=== PATIENT | female | born 1960 | race Caucasian/White ===

== ENCOUNTER → 2022-09-11 13:16 | Outpatient (BNVA) | payer OTHER, SELFPAY | PROVIDERS: PCP Internal Medicine; Visit Provider Hospitalist | DX: Z13.89 Encounter for screening for other disorder (principal) ==

== ENCOUNTER 2022-09-17 13:46 | Outpatient (REF) | payer OTHER, SELFPAY ==
--- NOTE | 2022-09-17 | PFT_ITS ---
Forced vital capacity 97%, FEV1 99%, [id number] 102%, and MVV 76%. Post bronchodilator therapy, there is no significant change. Total lung capacity 101%. Residual volume 101%. Diffusion capacity 84%. CONCLUSION: Normal pulmonary function test. No evidence of obstructive or restrictive pulmonary disease. Slight decrease in MVV is probably effort related. Clinical correlation recommended. MD JESSICA Simms/MODL / [id number]
== END 2022-09-17 13:47 | disposition home or self-care (01) ==
LOC: HO.RESP 13:46
PROVIDERS: PCP Internal Medicine; Visit Provider Hospitalist
DX: J45.909 Unspecified asthma, uncomplicated (principal)
CPT/HCPCS: 94060; 94727; 94729

== ENCOUNTER → 2022-10-06 13:45 | Outpatient (BNVA) | payer OTHER, SELFPAY | PROVIDERS: PCP Internal Medicine; Visit Provider Hospitalist | DX: J44.9 Chronic obstructive pulmonary disease, unspecified (principal); J45.909 Unspecified asthma, uncomplicated; R05.3 Chronic cough ==

== ENCOUNTER → 2023-02-02 13:08 | Outpatient (BNVA) | payer OTHER, SELFPAY | PROVIDERS: PCP Internal Medicine; Visit Provider Hospitalist | DX: J44.9 Chronic obstructive pulmonary disease, unspecified (principal); J45.909 Unspecified asthma, uncomplicated; R05.3 Chronic cough; J30.9 Allergic rhinitis, unspecified ==

== ENCOUNTER 2024-02-03 12:54 | Outpatient (AMB) | payer OTHER, SELFPAY ==
[2024-02-03 12:58] VITALS: PULSE 69; O2SAT 99; BMI 23.4
--- NOTE | 2024-02-03 12:58 | A.OFFVIS_ITS ---
Vital Signs 02/03/24 12:58 Height 5 ft 2 in Weight 127 lb 13.89 oz BMI 23.4 Pulse 69 Pulse Source Pulse Oximeter Pulse Oximetry (%) 99 Oxygen Delivery Method Room Air Intake Visit Reasons: Shortness of breath Vulcanizer Rubber Plate Required: No Allergies No Known Allergies Allergy (Verified 02/03/24 13:02) HPI Comments Details: The patient is a 63 year woman with a known history of exercise induced asthma was not presenting with worsening respiratory symptoms. The patient has been noticing for the last several months she has been having increasing dyspnea on exertion. Also complains of chest tightness and a cough. The cough is not productive in nature. The cough tends to keep her at nighttime. She has tried multiple therapies including [id number] nasal sprays without any significant improvement. She also spoke to her primary care doctor about it. They recommended starting a PPI. The patient opted at not starting any medications for her GI tract at this time. She did undergo a chest x-ray which we personally reviewed. No evidence of any acute disease. She does have a rescue inhaler that she does not find to helpful. She denies any other triggers. Denies any recent illness. The patient denies any new pets a home. On examination she does have some post exhalation coughing suggesting the possibility of cough variant asthma. Will go ahead and optimize respiratory therapy as we gather more information the patient also has significant nasal congestion and postnasal drip likely a component of upper airway cough syndrome. Although she is not taking a PPI we did talk about the importance of sleeping elevated and starting a reflux diet. 10/08/2022 the patient is here for a pulmonary follow-up visit. Overall she is feeling a lot better her shortness breath is improved after starting the Symbicort. She was able to wean off. Although she still has a cough. The cough is typically hacking in nature moderate severity. Intermittent. Usually worse at nighttime. It is likely consistent with a upper airway cough syndrome. Our allergy testings were negative. Therefore, will go ahead and try petroleum nasal spray to see if he can not drive some more her secretions for her nasal passages. Her PFTs also reassuring and also her imaging studies also reassuring. 02/02/2023 the patient is here for a pulmonary follow-up visit. Overall the jovi ent is feeling better. She does not have to use her inhalers regularly. Her major triggers that the hot and humid days in addition to viral illnesses. The patient has nasal congestion has gotten better. She is working closely about reflux disease. She is trying the nasal sprays. She is using the fluticasone. She still has a lot of frothy secretions in the posterior pharynx therefore I did recommend she can not take deep trapping also earlier in the day to try to help her with that. The patient did have a history of eye sinus cyst at some point that resulted in some erosion of her she. Therefore will go ahead and request a sinus x-ray. If the patient continues with congestion in the sinuses and or if her sinus x-rays abnormal will go ahead and refer her to ENT. Otherwise patient seems to be doing okay. Will follow-up in a year's time. She is due for the pneumonia vaccine, Prevnar 20. She is going to get her the pharmacy. Allergy therapies are not working for her. She stop the Zyrtec. The patient did have allergy testing and all was negative her IgE level was noted to be low. 02/03/2024 the patient is here for a pulmonary follow-up visit. She has had a hard few months. Seems like every time she gets a cold her respiratory symptoms worsened she ends up with a cough for several weeks if not couple months. The patient has been using Symbicort as needed. She also has significant nasal congestion. She did finally get an ENT consultation and she did have laryngoscopy. They noticed significant allergy related changes. They recommended allergy testing for potential allergy shots. The patient was not sure. No additional interventions were provided she was told to continue with range therapy. The patient still struggling. We did review her allergy testing that she had about a year ago no significant allergy findings then although the limited study. Indeed the patient has significant inflammation in the posterior pharynx with significant postnasal drip. She is already performing nasal rinsing. Will go ahead and start her on additional therapies at this time. If the patient is no better then will do additional testing. [facility] Medical History (Updated 02/03/24 @ 13:03 by Dimas Vaughn MD) Chronic allergic rhinitis Chronic cough Asthma Social History (Updated 09/11/22 @ 13:30 by GEORGINA Velásquez) Patient Tobacco Use Status: Former Tobacco user Tobacco use type: Cigarette Years Smoked: 5 Years Review of Systems Const Denies weakness Eyes Denies change in vision and Denies itchy eyes ENT Reports change in voice, Reports nasal congestion, Reports nasal discharge and Reports post nasal drip Card Denies chest pain and Denies dyspnea on exertion Resp Reports chest congestion, Reports cough, Denies dyspnea on exertion and Reports wheezing GI Reports no additional complaints Musc Reports arthralgias and Reports joint swelling Skin/Breast Denies rash Neuro Reports no additional complaints and Denies weakness Pawan/Lymph Denies easy bruising Aller/Immun Denies itchy eyes and Reports wheezing Physical Exam Vital Signs: Last Vital Signs Pulse 69 02/03/24 12:58 Pulse Ox 99 02/03/24 12:58 Oxygen Delivery Method Room Air 02/03/24 12:58 BMI result Body Mass Index 23.4 Const General: comfortable HEENT General nose exam: Abnormal mucous membranes and turbinates present boggy and erythematous and Nasal discharge present Throat: Yes postnasal drainage and Yes cobblestoning Eyes General: appearance normal, both eyes and all related structures Neck Neck: Yes supple Chest Chest palpation & inspection: normal inspection of the chest Resp Effort & Inspection: normal respiratory effort Auscultation: clear to auscultation bilaterally and wheezes Cardio Rate: regular rate Rhythm: regular rhythm Heart sounds: S1 normal heart sound present and S2 normal heart sound present GI Auscultation: normal bowel sounds Skin General skin exam: no rashes or lesions noted Extrem General: Yes no clubbing, cyanosis or edema Assessment & Plan Assessment & Plan (1) Chronic allergic rhinitis: Code(s): J30.9 - Allergic rhinitis, unspecified Category: Medical (2) Chronic cough: Code(s): R05.3 - Chronic cough Category: Medical (3) Asthma: Code(s): J45.909 - Unspecified asthma, uncomplicated Category: Medical Qualifiers: Asthma complication type: uncomplicated Asthma persistence: persistent Asthma severity: moderate Qualified Code(s): J45.40 - Moderate persistent asthma, uncomplicated Plan Increase Symbicort BID start Singulair KATLIN as needed continue Zyrtec start Astelin nasal spray flonase OTC nasal rinsing reflux diet sleep elavated benzonates as needed for cough F/U 3 months Medications: New montelukast 10 mg PO DAILY 30 tabs 11RF 30 days J45.909 - Unspecified asthma, uncomplicated Refilled benzonatate 200 mg PO BID 30 days PRN 60 caps 0RF cough benzonatate 200 mg PO BID PRN 60 caps 5RF cough 30 days budesonide-formoterol 160-4.5 mcg/actuation (Symbicort) 2 puffs inhalation BID 10.2 grams 11RF 30 days J44.9 - Chronic obstructive pulmonary disease, unspecified Coding Level of Care Code Est Pt Level 4 (28864) Diagnoses Chronic allergic rhinitis J30.9 Chronic cough R05.3 Moderate persistent asthma without complication J45.40 Asthma complication type: uncomplicated Asthma persistence: persistent Asthma severity: moderate Time Spent (min) 17
== END 2024-02-03 13:25 | disposition home or self-care (01) ==
PROVIDERS: PCP Internal Medicine; Visit Provider Hospitalist
DX: J30.9 Allergic rhinitis, unspecified (principal); R05.3 Chronic cough; J45.40 Moderate persistent asthma, uncomplicated
CPT/HCPCS: 99214

== ENCOUNTER → 2024-02-03 12:54 | Outpatient (BNVA) | payer OTHER, SELFPAY | PROVIDERS: PCP Internal Medicine; Visit Provider Hospitalist ==

== ENCOUNTER 2024-06-13 13:37 | Outpatient (AMB) | payer OTHER, SELFPAY ==
--- NOTE | 2024-06-13 13:38 | MHC.OFFVIS ---
Vital Signs 06/13/24 13:41 Weight 126 lb 12.253 oz BP 126/62 Blood Pressure Location Lt brachial Position Sitting Pulse 72 Pulse Source Pulse Oximeter Pulse Oximetry (%) 99 Oxygen Delivery Method Room Air Intake Visit Reasons: Shortness of breath Allergies No Known Allergies Allergy (Verified 06/13/24 13:43) Medication List - Last Reconciled 06/13/24 by Chey Butler LPN albuterol sulfate 90 mcg/actuation 2 puffs inhalation Q6H PRN atorvastatin 20 mg PO DAILY azelastine (Astepro Allergy) 2 sprays intranasal BID benzonatate 200 mg PO BID PRN 30 days budesonide-formoterol 160-4.5 mcg/actuation (Symbicort) 2 puffs inhalation BID 30 days cetirizine (Zyrtec) 10 mg PO DAILY PRN inhalational spacing device (Aerochamber MV spacer) As directed ipratropium bromide 2 sprays intranasal TID PRN montelukast 10 mg PO DAILY 30 days HPI Comments Details: The patient is a 63 year woman with a known history of exercise induced asthma was not presenting with worsening respiratory symptoms. The patient has been noticing for the last several months she has been having increasing dyspnea on exertion. Also complains of chest tightness and a cough. The cough is not productive in nature. The cough tends to keep her at nighttime. She has tried multiple therapies including [id number] nasal sprays without any significant improvement. She also spoke to her primary care doctor about it. They recommended starting a PPI. The patient opted at not starting any medications for her GI tract at this time. She did undergo a chest x-ray which we personally reviewed. No evidence of any acute disease. She does have a rescue inhaler that she does not find to helpful. She denies any other triggers. Denies any recent illness. The patient denies any new pets a home. On examination she does have some post exhalation coughing suggesting the possibility of cough variant asthma. Will go ahead and optimize respiratory therapy as we gather more information the patient also has significant nasal congestion and postnasal drip likely a component of upper airway cough syndrome. Although she is not taking a PPI we did talk about the importance of sleeping elevated and starting a reflux diet. 10/08/2022 the patient is here for a pulmonary follow-up visit. Overall she is feeling a lot better her shortness breath is improved after starting the Symbicort. She was able to wean off. Although she still has a cough. The cough is typically hacking in nature moderate severity. Intermittent. Usually worse at nighttime. It is likely consistent with a upper airway cough syndrome. Our allergy testings were negative. Therefore, will go ahead and try petroleum nasal spray to see if he can not drive some more her secretions for her nasal passages. Her PFTs also reassuring and also her imaging studies also reassuring. 02/02/2023 the patient is here for a pulmonary follow-up visit. Overall the patient is feeling better. She does not have to use her inhalers regularly. Her major triggers that the hot and humid days in addition to viral illnesses. The patient has nasal congestion has gotten better. She is working closely about reflux disease. She is trying the nasal sprays. She is using the fluticasone. She still has a lot of frothy secretions in the posterior pharynx therefore I did recommend she can not take deep trapping also earlier in the day to try to help her with that. The patient did have a history of eye sinus cyst at some point that resulted in some erosion of her she. Therefore will go ahead and request a sinus x-ray. If the patient continues with congestion in the sinuses and or if her sinus x-rays abnormal will go ahead and refer her to ENT. Otherwise patient seems to be doing okay. Will follow-up in a year's time. She is due for the pneumonia vaccine, Prevnar 20. She is going to get her the pharmacy. Allergy therapies are not working for her. She stop the Zyrtec. The patient did have allergy testing and all was negative her IgE level was noted to be low. 02/03/2024 the patient is here for a pulmonary follow-up visit. She has had a hard few months. Seems like every time she gets a cold her respiratory symptoms worsened she ends up with a cough for several weeks if not couple months. The patient has been using Symbicort as needed. She also has significant nasal congestion. She did finally get an ENT consultation and she did have laryngoscopy. They noticed significant allergy related changes. They recommended allergy testing for potential allergy shots. The patient was not sure. No additional interventions were provided she was told to continue with range therapy. The patient still struggling. We did review her allergy testing that she had about a year ago no significant allergy findings then although the limited study. Indeed the patient has significant inflammation in the posterior pharynx with significant postnasal drip. She is already performing nasal rinsing. Will go ahead and start her on additional therapies at this time. If the patient is no better then will do additional testing. 06/13/2024 the patient is here for a pulmonary follow-up visit. The patient overall has been doing a lot better. She feels like she is on a good regimen. She has already nasal therapy for her allergies and postnasal drip. She is also using her inhalers with good effect for her asthma. No recent x-rays to review. The patient will continue the current therapy as prescribed. He is going to be going to [place] soon. Her vaccines are up-to-date. Will follow-up in a year's time. [facility] Medical History (Updated 02/03/24 @ 13:03 by Dimas Vaughn MD) Chronic allergic rhinitis Chronic cough Asthma Social History (Updated 06/13/24 @ 13:44 by Chey Butler LPN) Patient Tobacco Use Status: Former Tobacco user Tobacco use type: Cigarette Years Smoked: 5 Years Review of Systems Const Denies weakness Eyes Denies change in vision and Denies itchy eyes ENT Denies change in voice, Reports nasal congestion, Reports nasal discharge and Reports post nasal drip Card Denies chest pain and Denies dyspnea on exertion Resp Denies chest congestion, Reports cough, Denies dyspnea on exertion and Denies wheezing GI Reports no additional complaints Musc Reports arthralgias and Reports joint swelling Skin/Breast Denies rash Neuro Reports no additional complaints and Denies weakness Pawan/Lymph Denies easy bruising Aller/Immun Denies itchy eyes and Denies wheezing Physical Exam Vital Signs: Last Vital Signs Pulse 72 06/13/24 13:41 BP 126/62 06/13/24 13:41 Pulse Ox 99 06/13/24 13:41 Oxygen Delivery Method Room Air 06/13/24 13:41 Const General: comfortable HEENT General nose exam: Abnormal mucous membranes and turbinates present boggy and erythematous and Nasal discharge present Throat: Yes postnasal drainage and Yes cobblestoning Eyes General: appearance normal, both eyes and all related structures Neck Neck: Yes supple Chest Chest palpation & inspection: normal inspection of the chest Resp Effort & Inspection: normal respiratory effort Auscultation: clear to auscultation bilaterally and no wheezes Cardio Rate: regular rate Rhythm: regular rhythm Heart sounds: S1 normal heart sound present and S2 normal heart sound present GI Auscultation: normal bowel sounds Skin General skin exam: no rashes or lesions noted Extrem General: Yes no clubbing, cyanosis or edema Assessment & Plan Assessment & Plan (1) Chronic allergic rhinitis: Code(s): J30.9 - Allergic rhinitis, unspecified Category: Medical (2) Chronic cough: Code(s): R05.3 - Chronic cough Category: Medical (3) Asthma: Code(s): J45.909 - Unspecified asthma, uncomplicated Category: Medical Qualifiers: Asthma complication type: uncomplicated Asthma persistence: persistent Asthma severity: moderate Qualified Code(s): J45.40 - Moderate persistent asthma, uncomplicated Plan Symbicort BID continue Singulair KATLIN as needed continue Zyrtec Astelin nasal spray flonase OTC nasal rinsing reflux diet sleep elavated benzonates as needed for cough F/U 12 months Coding Level of Care Code Est Pt Level 4 (76348) Diagnoses Chronic allergic rhinitis J30.9 Chronic cough R05.3 Moderate persistent asthma without complication J45.40 Asthma complication type: uncomplicated Asthma persistence: persistent Asthma severity: moderate Time Spent (min) 16
[2024-06-13 13:41] VITALS: BP 126/62; PULSE 72; O2SAT 99
== END 2024-06-13 14:01 | disposition home or self-care (01) ==
LOC: HO.HPS 13:37
PROVIDERS: PCP Internal Medicine; Visit Provider Hospitalist
DX: J30.9 Allergic rhinitis, unspecified (principal); R05.3 Chronic cough; J45.40 Moderate persistent asthma, uncomplicated
CPT/HCPCS: 99214

== ENCOUNTER → 2024-06-13 13:37 | Outpatient (BNVA) | payer OTHER, SELFPAY | PROVIDERS: PCP Internal Medicine; Visit Provider Hospitalist ==

== ENCOUNTER 2025-06-11 12:53 | Outpatient (AMB) | payer OTHER, SELFPAY ==
--- NOTE | 2025-06-11 13:05 | A.OFFVIS_ITS ---
Vital Signs 06/11/25 13:06 Height 5 ft 2 in Weight 135 lb 9.349 oz BMI 24.8 BP 128/62 Blood Pressure Location Lt brachial Position Sitting Pulse 62 Pulse Source Pulse Oximeter Pulse Oximetry (%) 98 Oxygen Delivery Method Room Air Intake Visit Reasons: Shortness of breath Printer'S Assistant Required: No Accompanied by: Self / Same As Patient Allergies No Known Allergies Allergy (Verified 06/11/25 13:09) HPI Comments Details: The patient is a 64 year woman with a known history of exercise induced asthma was not presenting with worsening respiratory symptoms. The patient has been noticing for the last several months she has been having increasing dyspnea on exertion. Also complains of chest tightness and a cough. The cough is not productive in nature. The cough tends to keep her at nighttime. She has tried multiple therapies including [id number] nasal sprays without any significant improvement. She also spoke to her primary care doctor about it. They recommended starting a PPI. The patient opted at not starting any medications for her GI tract at this time. She did undergo a chest x-ray which we personally reviewed. No evidence of any acute disease. She does have a rescue inhaler that she does not find to helpful. She denies any other trigge rs. Denies any recent illness. The patient denies any new pets a home. On examination she does have some post exhalation coughing suggesting the possibility of cough variant asthma. Will go ahead and optimize respiratory therapy as we gather more information the patient also has significant nasal congestion and postnasal drip likely a component of upper airway cough syndrome. Although she is not taking a PPI we did talk about the importance of sleeping elevated and starting a reflux diet. 10/08/2022 the patient is here for a pulmonary follow-up visit. Overall she is feeling a lot better her shortness breath is improved after starting the Symbicort. She was able to wean off. Although she still has a cough. The cough is typically hacking in nature moderate severity. Intermittent. Usually worse at nighttime. It is likely consistent with a upper airway cough syndrome. Our allergy testings were negative. Therefore, will go ahead and try petroleum nasal spray to see if he can not drive some more her secretions for her nasal passages. Her PFTs also reassuring and also her imaging studies also reassuring. 02/02/2023 the patient is here for a pulmonary follow-up visit. Overall the patient is feeling better. She does not have to use her inhalers regularly. Her major triggers that the hot and humid days in addition to viral illnesses. The patient has nasal congestion has gotten better. She is working closely about reflux disease. She is trying the nasal sprays. She is using the fluticasone. She still has a lot of frothy secretions in the posterior pharynx therefore I did recommend she can not take deep trapping also earlier in the day to try to help her with that. The patient did have a history of eye sinus cyst at some point that resulted in some erosion of her she. Therefore will go ahead and request a sinus x-ray. If the patient continues with congestion in the sinuses and or if her sinus x-rays abnormal will go ahead and refer her to ENT. Otherwise patient seems to be doing okay. Will follow-up in a year's time. She is due for the pneumonia vaccine, Prevnar 20. She is going to get her the pharmacy. Allergy therapies are not working for her. She stop the Zyrte. The patient did have allergy testing and all was negative her IgE level was noted to be low. 02/03/2024 the patient is here for a pulmonary follow-up visit. She has had a hard few months. Seems like every time she gets a cold her respiratory symptoms worsened she ends up with a cough for several weeks if not couple months. The patient has been using Symbicort as needed. She also has significant nasal congestion. She did finally get an ENT consultation and she did have laryngoscopy. They noticed significant allergy related changes. They recommended allergy testing for potential allergy shots. The patient was not sure. No additional interventions were provided she was told to continue with range therapy. The patient still struggling. We did review her allergy testing that she had about a year ago no significant allergy findings then although the limited study. Indeed the patient has significant inflammation in the posterior pharynx with significant postnasal drip. She is already performing nasal rinsing. Will go ahead and start her on additional therapies at this time. If the patient is no better then will do additional testing. 06/13/2024 the patient is here for a pulmonary follow-up visit. The patient overall has been doing a lot better. She feels like she is on a good regimen. She has already nasal therapy for her allergies and postnasal drip. She is also using her inhalers with good effect for her asthma. No recent x-rays to review. The patient will continue the current therapy as prescribed. He is going to be going to [place] soon. Her vaccines are up-to-date. Will follow-up in a year's time. 06/11/2025 the patient is here for pulmonary follow-up visit. Overall she is doing well. The patient states that her cough is significantly better. She still wheezes at times. She is exercising regularly. She feels the Singulair has been very affecting beneficial. Her postnasal drip still an issue. She continues with her current prescriptions that appeared to be partially helpful. Therefore she will continue with the current regimen for her nasal rhinitis and she will continue with the Symbicort as prescribed. No recent imaging to review at this time. Overall she is stable. Will follow-up in a year's time. [facility] Medical History (Updated 02/03/24 @ 13:03 by Dimas Vaughn MD) Chronic allergic rhinitis Chronic cough Asthma Social History Patient Tobacco Use Status: Former Tobacco user Tobacco use type: Cigarette Years Smoked: 5 Years Review of Systems Const Denies weakness Eyes Denies change in vision and Denies itchy eyes ENT Denies change in voice, Reports nasal congestion, Reports nasal discharge and Reports post nasal drip Card Denies chest pain and Denies dyspnea on exertion Resp Denies chest congestion, Reports cough, Denies dyspnea on exertion and Denies wheezing GI Reports no additional complaints Musc Reports arthralgias and Reports joint swelling Skin/Breast Denies rash Neuro Reports no additional complaints and Denies weakness Pawan/Lymph Denies easy bruising Aller/Immun Denies itchy eyes and Denies wheezing Physical Exam Vital Signs: Last Vital Signs Pulse 62 06/11/25 13:06 BP 128/62 06/11/25 13:06 Pulse Ox 98 06/11/25 13:06 Oxygen Delivery Method Room Air 06/11/25 13:06 BMI result Body Mass Index 24.8 Const General: comfortable HEENT General nose exam: Abnormal mucous membranes and turbinates present boggy and erythematous and Nasal discharge present Throat: Yes postnasal drainage and Yes cobblestoning Eyes General: appearance normal, both eyes and all related structures Neck Neck: Yes supple Chest Chest palpation & inspection: normal inspection of the chest Resp Effort & Inspection: normal respiratory effort Auscultation: wheezes scattered wheezes and diminished lung sounds Cardio Rate: regular rate Rhythm: regular rhythm Heart sounds: S1 normal heart sound present and S2 normal heart sound present GI Auscultation: normal bowel sounds Skin General skin exam: no rashes or lesions noted Extrem General: Yes no clubbing, cyanosis or edema Assessment & Plan Assessment & Plan (1) Chronic allergic rhinitis: Code(s): J30.9 - Allergic rhinitis, unspecified Category: Medical (2) Chronic cough: Code(s): R05.3 - Chronic cough Category: Medical (3) Asthma: Code(s): J45.909 - Unspecified asthma, uncomplicated Category: Medical Qualifiers: Asthma complication type: uncomplicated Asthma persistence: persistent Asthma severity: moderate Qualified Code(s): J45.40 - Moderate persistent asthma, uncomplicated Plan Symbicort BID continue Singulair KATLIN as needed continue Zyrtec Astelin nasal spray flonase OTC nasal rinsing reflux diet sleep elavated benzonates as needed for cough F/U 12 months Coding Level of Care Code Est Pt Level 4 (81226) Diagnoses Chronic allergic rhinitis J30.9 Chronic cough R05.3 Moderate persistent asthma without complication J45.40 Asthma complication type: uncomplicated Asthma persistence: persistent Asthma severity: moderate Time Spent (min) 16
[2025-06-11 13:06] VITALS: BP 128/62; PULSE 62; O2SAT 98; BMI 24.8
== END 2025-06-11 13:29 | disposition home or self-care (01) ==
LOC: HO.HPS 12:54
PROVIDERS: PCP Internal Medicine; Visit Provider Hospitalist
DX: J30.9 Allergic rhinitis, unspecified (principal); R05.3 Chronic cough; J45.40 Moderate persistent asthma, uncomplicated
CPT/HCPCS: 99214